=== PATIENT | female | born 1935 | race Caucasian/White ===

== ENCOUNTER 2016-09-08 18:39 | Emergency (ER) | payer OTHER, MEDICARE ==
--- NOTE | 2016-09-08 19:51 | DIAGNOSTIC IMAGING REPORT ---
PROCEDURE: XR WRIST MIN 3 VIEWS - RIGHT INDICATION: TRAUMA/INJURY TECHNIQUE: Four views. COMPARISON: None. FINDINGS: Mild degenerate changes of the right first metacarpal/greater multangular joint. Osseous structures and joint spaces are otherwise normal. If an occult scaphoid fracture is suspected clinically, follow-up examination in 10-14 days may be of assistance. IMPRESSION: 1. Mild degenerative changes. 2. Otherwise negative right wrist.
--- NOTE | 2016-09-08 20:27 | ED NURSING NOTES ---
Clinical Report - Nurses [facility] [address] [place] [address] 09/08/2016 18:38 Patient: MARTHA HA TRIAGE Triage time 18:50 Sep 08 2016. Acuity: LEVEL 4. Chief Complaint: RIGHT UPPER EXTREMITY PAIN and SWELLING. Alert. No acute distress. CAMERON COMA SCORE: Cameron Coma Scale: 15- eyes open spontaneously (4); best verbal response- oriented x 4 (5); best motor response- obeys commands (6). --18:53 Nila Reagan R.N. 18:50 09/08/16. BP: 148/126. HR: 71. RR: 18. O2 saturation: 100%. Temp: 98.2 F. Pain level now 4/10. --18:53 Nila Reagan R.N. Weight: 81.6 kg estimated. Height/Length: 66 inches Estimated. BMI: 29. --18:49 Nila Reagan R.N. Medications Fish Oil Oral (Capsule 1000 mg). PredniSONE Oral 5 mg. Vitamin D Oral (Tablet 2000 unit). Vitamins/Minerals Oral 1 pill. --18:51 Nila Reagan R.N. The following entry was struck by Nila Reagan R.N., 18:52 (09/08/16) Reason - wrong value. <<STRICKEN ENTRY-- Terbinafine HCl Oral (Tablet 250 mg). --18:51 Nila Reagan R.N. --END STRIKE>> The following entry was struck by Nila Reagan R.N., 18:52 (09/08/16) Reason - wrong value. <<STRICKEN ENTRY-- Sulfamethoxazole-TMP DS Oral (Tablet 800-160 mg) 1 tablet, bid, started 05-13-2013. --18:51 Nila Reagan R.N. --END STRIKE>>. Allergies No Known Drug Allergy. --18:51 Nila Reagan R.N. History Arrived by private vehicle. Historian: patient. ( Right Hand Injury after tripping over some boxes in her bedroom. Put her Right Hand out to comfort the fall, swelling and painful.). Injury occurred. This occurred just prior to arrival. Occurred at home. 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 PAST MEDICAL HX: Immunizations: has received pneumonia vaccine; seasonal influenza. SOCIAL HX: Former smoker. No alcohol use or drug use. No infectious disease exposure. FALL RISK ASSESSMENT: Fall risk assessment completed. No fall risk identified. NUTRITIONAL RISK ASSESSMENT: The nutritional risk assessment revealed no deficiencies. FUNCTIONAL ASSESSMENT: Functional assessment: no impairments noted. LEARNING NEEDS ASSESSMENT: The learning needs assessment revealed no barriers. SKIN INTEGRITY ASSESSMENT: Skin integrity risk assessment completed. No skin integrity risk identified. --18:53 Nila Reagan R.N. PROBLEMS: Allergic Reaction. Polymyalgia Rheumatica. Hypercholesterolemia. --18:53 Nila Reagan R.N. ADDITIONAL SURGERIES: . Ear. Tonsillectomy. --18:53 Nila Reagan R.N. Interventions ID band on patient. To room. --18:53 Nila Reagan R.N. PHYSICAL ASSESSMENT Ambulatory to room. GENERAL / NEURO / PSYCH: Alert. Appears in no acute distress. EXTREMITIES: Neuro-vascular status intact to the extremity. Right wrist. SKIN: Skin is warm and dry. --19:13 Nila Reagan R.N. NURSING PROGRESS NOTES Patient ready for evaluation- ED physician notified. --19:13 Nila Reagan R.N. Cold pack applied. --19:14 Nila Reagan R.N. 20:10 Patient contact made; no voiced questions or conerns at this time. --20:11 McQuoid, Lorena, ER Tech1 ( Pt has been discharged by another RN for primary RN. Pt already has a soft brace that she wants to wear, she had it on at triage. Brought from home.). --20:35 Nila Reagan R.N. DISPOSITION / DISCHARGE Departure time: 20:36 Sep 08 2016. Condition at departure: improved and stable. No learning barriers present. Patient verbalized understanding. Written instructions provided in Arabic. The patient was discharged by the physician. She was discharged home. She left the Emergency Department ambulatory and via private vehicle. Patient driving. --20:36 Nila Reagan R.N. 20:35 09/08/16. BP: 144/79. HR: 68. RR: 18. O2 saturation: 97%. Pain level now 0/10. --20:36 Nila Reagan R.N. Locked/Released at 09/08/2016 20:42 by Nila Reagan R.N.
--- NOTE | 2016-09-08 20:27 | ED CLINICAL REPORT ---
Clinical Report - Physicians/Mid Levels [facility] [address] [place] [place] [address] 09/08/2016 18:38 Patient: MARTHA HA Time Seen: 18:50. Arrived- By private vehicle. Historian- patient. HISTORY OF PRESENT ILLNESS Chief Complaint: Injury to the right hand and right wrist. The injury happened just prior to arrival. Fell (on outstretched hand). Occurred at home. Patient is experiencing moderate pain. No other injury. REVIEW OF SYSTEMS The patient has had swelling. No tingling, numbness, weakness, foreign body or skin laceration. All systems otherwise negative, except as recorded above. PAST HISTORY Problems: Allergic Reaction. Polymyalgia Rheumatica. Hypercholesterolemia. Additional Surgeries: . Ear. Tonsillectomy. Medications: Fish Oil Oral (Capsule 1000 mg). PredniSONE Oral 5 mg. Vitamin D Oral (Tablet 2000 unit). Vitamins/Minerals Oral 1 pill. Allergies: No Known Drug Allergy. SOCIAL HISTORY Never smoker. No alcohol use or drug use. ADDITIONAL NOTES The nursing notes have been reviewed. PHYSICAL EXAM Vital Signs: 09/08/2016 18:50 BP: 148/126. HR: 71. RR: 18. O2 saturation: 100%. Temp: 98.2 F. Have been reviewed. Appearance: Alert. No acute distress. Head: Head atraumatic. Eyes: Eyes normal inspection. ENT: Nose normal. Neck: Normal inspection. CVS: Pulses normal. Respiratory: No respiratory distress. Skin: Skin warm and dry. Skin intact. Extremities: Left wrist: moderate tenderness located in the dorsal and radial aspect of the wrist. Neurovascular intact distally. No erythema, swelling, laceration, abrasion or ecchymosis. No puncture wound, foreign body or deformity. No joint effusion or limitation in ROM. Left hand: mild tenderness localized to the proximal, dorsal and radial aspect of the hand. Neurovascular intact distally. (ROM intact). No erythema, swelling, laceration, abrasion or ecchymosis. No puncture wound, foreign body or deformity. Hand and wrist exam otherwise negative. Extremities otherwise negative. Neuro, Vascular and Tendons: Vascular status intact. Sensation intact. Motor intact. Tendon function intact. Neuro: Oriented X 3. No motor deficit. No sensory deficit. LABS, X-RAYS, AND EKG Rt Wrist X-ray: No fracture. Normal alignment. No bony lesion, air in the soft tissue or foreign body. Soft tissues normal. Joint spaces normal. Views: AP, lateral and oblique. Technique: good. The X-rays were independently viewed by me and interpreted contemporaneously by me. Prior films were not available for comparison. Pulse Oximetry: 09/08/2016 18:50 O2 saturation: 100%. (FIO2 - room air). Interpretation: normal. PROGRESS AND PROCEDURES Course of Care: X-ray was performed to evaluate the pt's wrist tenderness, and was negative, other than degenerative changes. Patient counseled in person regarding the patient's stable condition, test results, diagnosis and need for follow-up. Concerns were addressed. Old medical records reviewed. Disposition: Discharged. Condition: stable. CLINICAL IMPRESSION Sprain of the right radiocarpal joint. INSTRUCTIONS Apply ice. (Your x-ray series looks good--no broken bones!). Warnings: GENERAL WARNINGS: Return or contact your physician immediately if your condition worsens or changes unexpectedly, if not improving as expected, or if other problems arise. Your Current Medications: CONTINUE TAKING THE FOLLOWING MEDICATIONS: Fish Oil Oral : Capsule 1000 mg. PredniSONE Oral : 5 mg. Vitamin D Oral : Tablet 2000 unit. Vitamins/Minerals Oral : 1 pill. Follow-up: Follow up with your doctor as needed. Understanding of the discharge instructions verbalized by patient. (Electronically signed by Andra Deshpande MD 09/17/2016 7:06)
--- NOTE | 2016-09-08 20:27 | ED ORDER SUMMARY ---
..... Patient: MARTHA HA OrderSheet [facility] VisitID: [id number] [address] [place] [address] 80y, F Registration Date/Time: 09/08/2016 ORDER SHEET Weight: 81.6 kg (estimated) Allergies: No Known Drug Allergy GENERAL ORDERS: Wrist 3 or 4V Right Urgent (19:16 09/08/2016 Deo Miranda per protocol) (Ack 19:17 ZENAIDAoerbrayden) (19:29 ) MEDICATION ORDERS: IV FLUIDS: ORDER SHEET NOTES: [Electronically signed by Nila Reagan R.N. (20:42 09/08/2016)] [Electronically signed by Andra Deshpande MD (07:06 09/17/2016)] [Electronically locked/signed by Nila Reagan R.N. (20:42 09/08/2016)]
--- NOTE | 2016-09-08 20:27 | ED ORDER SUMMARY ---
..... Patient: MARTHA HA OrderSheet [facility] VisitID: [id number] [address] [place] [address] 80y, F Registration Date/Time: 09/08/2016 ORDER SHEET Weight: 81.6 kg (estimated) Allergies: No Known Drug Allergy GENERAL ORDERS: Wrist 3 or 4V Right Urgent (19:16 09/08/2016 Deo Miranda per protocol) (Ack 19:17 ZENAIDAoerbrayden) (19:29 ) MEDICATION ORDERS: IV FLUIDS: ORDER SHEET NOTES: [Electronically signed by Nila Reagan R.N. (20:42 09/08/2016)] [Electronically signed by Andra Deshpande MD (07:06 09/17/2016)] [Electronically locked/signed by Nila Reagan R.N. (20:42 09/08/2016)]
--- NOTE | 2016-09-08 20:27 | ED NURSING NOTES ---
Clinical Report - Nurses [facility] [address] [place] [address] 09/08/2016 18:38 Patient: MARTHA HA TRIAGE Triage time 18:50 Sep 08 2016. Acuity: LEVEL 4. Chief Complaint: RIGHT UPPER EXTREMITY PAIN and SWELLING. Alert. No acute distress. CAMERON COMA SCORE: Cameron Coma Scale: 15- eyes open spontaneously (4); best verbal response- oriented x 4 (5); best motor response- obeys commands (6). --18:53 Nila Reagan R.N. 18:50 09/08/16. BP: 148/126. HR: 71. RR: 18. O2 saturation: 100%. Temp: 98.2 F. Pain level now 4/10. --18:53 Nila Reagan R.N. Weight: 81.6 kg estimated. Height/Length: 66 inches Estimated. BMI: 29. --18:49 Nila Reagan R.N. Medications Fish Oil Oral (Capsule 1000 mg). PredniSONE Oral 5 mg. Vitamin D Oral (Tablet 2000 unit). Vitamins/Minerals Oral 1 pill. --18:51 Nila Reagan R.N. The following entry was struck by Nila Reagan R.N., 18:52 (09/08/16) Reason - wrong value. <<STRICKEN ENTRY-- Terbinafine HCl Oral (Tablet 250 mg). --18:51 Nila Reagan R.N. --END STRIKE>> The following entry was struck by Nila Reagan R.N., 18:52 (09/08/16) Reason - wrong value. <<STRICKEN ENTRY-- Sulfamethoxazole-TMP DS Oral (Tablet 800-160 mg) 1 tablet, bid, started 05-13-2013. --18:51 Nila Reagan R.N. --END STRIKE>>. Allergies No Known Drug Allergy. --18:51 Nila Reagan R.N. History Arrived by private vehicle. Historian: patient. ( Right Hand Injury after tripping over some boxes in her bedroom. Put her Right Hand out to comfort the fall, swelling and painful.). Injury occurred. This occurred just prior to arrival. Occurred at home. 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 PAST MEDICAL HX: Immunizations: has received pneumonia vaccine; seasonal influenza. SOCIAL HX: Former smoker. No alcohol use or drug use. No infectious disease exposure. FALL RISK ASSESSMENT: Fall risk assessment completed. No fall risk identified. NUTRITIONAL RISK ASSESSMENT: The nutritional risk assessment revealed no deficiencies. FUNCTIONAL ASSESSMENT: Functional assessment: no impairments noted. LEARNING NEEDS ASSESSMENT: The learning needs assessment revealed no barriers. SKIN INTEGRITY ASSESSMENT: Skin integrity risk assessment completed. No skin integrity risk identified. --18:53 Nila Reagan R.N. PROBLEMS: Allergic Reaction. Polymyalgia Rheumatica. Hypercholesterolemia. --18:53 Nila Reagan R.N. ADDITIONAL SURGERIES: . Ear. Tonsillectomy. --18:53 Nila Reagan R.N. Interventions ID band on patient. To room. --18:53 Nila Reagan R.N. PHYSICAL ASSESSMENT Ambulatory to room. GENERAL / NEURO / PSYCH: Alert. Appears in no acute distress. EXTREMITIES: Neuro-vascular status intact to the extremity. Right wrist. SKIN: Skin is warm and dry. --19:13 Nila Reagan R.N. NURSING PROGRESS NOTES Patient ready for evaluation- ED physician notified. --19:13 Nila Reagan R.N. Cold pack applied. --19:14 Nila Reagan R.N. 20:10 Patient contact made; no voiced questions or conerns at this time. --20:11 McQuoid, Lorena, ER Tech1 ( Pt has been discharged by another RN for primary RN. Pt already has a soft brace that she wants to wear, she had it on at triage. Brought from home.). --20:35 Nila Reagan R.N. DISPOSITION / DISCHARGE Departure time: 20:36 Sep 08 2016. Condition at departure: improved and stable. No learning barriers present. Patient verbalized understanding. Written instructions provided in Nepali. The patient was discharged by the physician. She was discharged home. She left the Emergency Department ambulatory and via private vehicle. Patient driving. --20:36 Nila Reagan R.N. 20:35 09/08/16. BP: 144/79. HR: 68. RR: 18. O2 saturation: 97%. Pain level now 0/10. --20:36 Nila Reagan R.N. Locked/Released at 09/08/2016 20:42 by Nila Reagan R.N.
--- NOTE | 2016-09-08 20:27 | ED CLINICAL REPORT ---
Clinical Report - Physicians/Mid Levels [facility] [address] [place] [address] 09/08/2016 18:38 Patient: MARTHA HA Time Seen: 18:50. Arrived- By private vehicle. Historian- patient. HISTORY OF PRESENT ILLNESS Chief Complaint: Injury to the right hand and right wrist. The injury happened just prior to arrival. Fell (on outstretched hand). Occurred at home. Patient is experiencing moderate pain. No other injury. REVIEW OF SYSTEMS The patient has had swelling. No tingling, numbness, weakness, foreign body or skin laceration. All systems otherwise negative, except as recorded above. PAST HISTORY Problems: Allergic Reaction. Polymyalgia Rheumatica. Hypercholesterolemia. Additional Surgeries: . Ear. Tonsillectomy. Medications: Fish Oil Oral (Capsule 1000 mg). PredniSONE Oral 5 mg. Vitamin D Oral (Tablet 2000 unit). Vitamins/Minerals Oral 1 pill. Allergies: No Known Drug Allergy. SOCIAL HISTORY Never smoker. No alcohol use or drug use. ADDITIONAL NOTES The nursing notes have been reviewed. PHYSICAL EXAM Vital Signs: 09/08/2016 18:50 BP: 148/126. HR: 71. RR: 18. O2 saturation: 100%. Temp: 98.2 F. Have been reviewed. Appearance: Alert. No acute distress. Head: Head atraumatic. Eyes: Eyes normal inspection. ENT: Nose normal. Neck: Normal inspection. CVS: Pulses normal. Respiratory: No respiratory distress. Skin: Skin warm and dry. Skin intact. Extremities: Left wrist: moderate tenderness located in the dorsal and radial aspect of the wrist. Neurovascular intact distally. No erythema, swelling, laceration, abrasion or ecchymosis. No puncture wound, foreign body or deformity. No joint effusion or limitation in ROM. Left hand: mild tenderness localized to the proximal, dorsal and radial aspect of the hand. Neurovascular intact distally. (ROM intact). No erythema, swelling, laceration, abrasion or ecchymosis. No puncture wound, foreign body or deformity. Hand and wrist exam otherwise negative. Extremities otherwise negative. Neuro, Vascular and Tendons: Vascular status intact. Sensation intact. Motor intact. Tendon function intact. Neuro: Oriented X 3. No motor deficit. No sensory deficit. LABS, X-RAYS, AND EKG Rt Wrist X-ray: No fracture. Normal alignment. No bony lesion, air in the soft tissue or foreign body. Soft tissues normal. Joint spaces normal. Views: AP, lateral and oblique. Technique: good. The X-rays were independently viewed by me and interpreted contemporaneously by me. Prior films were not available for comparison. Pulse Oximetry: 09/08/2016 18:50 O2 saturation: 100%. (FIO2 - room air). Interpretation: normal. PROGRESS AND PROCEDURES Course of Care: X-ray was performed to evaluate the pt's wrist tenderness, and was negative, other than degenerative changes. Patient counseled in person regarding the patient's stable condition, test results, diagnosis and need for follow-up. Concerns were addressed. Old medical records reviewed. Disposition: Discharged. Condition: stable. CLINICAL IMPRESSION Sprain of the right radiocarpal joint. INSTRUCTIONS Apply ice. (Your x-ray series looks good--no broken bones!). Warnings: GENERAL WARNINGS: Return or contact your physician immediately if your condition worsens or changes unexpectedly, if not improving as expected, or if other problems arise. Your Current Medications: CONTINUE TAKING THE FOLLOWING MEDICATIONS: Fish Oil Oral : Capsule 1000 mg. PredniSONE Oral : 5 mg. Vitamin D Oral : Tablet 2000 unit. Vitamins/Minerals Oral : 1 pill. Follow-up: Follow up with your doctor as needed. Understanding of the discharge instructions verbalized by patient. (Electronically signed by Andra Deshpande MD 09/17/2016 7:06)
--- NOTE | 2016-09-17 07:06 | ED MED RECONCILIATION SUMMARY ---
Patient: MARTHA HA Medication Reconciliation Report [facility] VisitID: [id number] [address] [place] [address] 80y, F Registration Date/Time: 09/08/2016 Weight: 81.6 kg Height/Length: 66 in. BMI: 29.0 ALLERGIES: No Known Drug Allergy The patient's Home Medications are listed below: CONTINUE TAKING THE FOLLOWING MEDICATIONS: Fish Oil Oral (1000 mg) PredniSONE Oral 5 mg Vitamin D Oral (2000 unit) Vitamins/Minerals Oral 1 pill The source(s) of the original Home Medication information: Not obtained. The following Medications were given to the patient in the Emergency Department: None. The following Medications were prescribed to the patient: None.
--- NOTE | 2016-09-17 07:06 | ED MED RECONCILIATION SUMMARY ---
Patient: MARTHA HA Medication Reconciliation Report [facility] VisitID: [id number] [address] [place] [address] 80y, F Registration Date/Time: 09/08/2016 Weight: 81.6 kg Height/Length: 66 in. BMI: 29.0 ALLERGIES: No Known Drug Allergy The patient's Home Medications are listed below: CONTINUE TAKING THE FOLLOWING MEDICATIONS: Fish Oil Oral (1000 mg) PredniSONE Oral 5 mg Vitamin D Oral (2000 unit) Vitamins/Minerals Oral 1 pill The source(s) of the original Home Medication information: Not obtained. The following Medications were given to the patient in the Emergency Department: None. The following Medications were prescribed to the patient: None.
--- NOTE | 2016-09-17 07:06 | ED MAR SUMMARY ---
..... Medication Administration Record [facility] [address] [place] [address] Patient: MARTHA HA Visit ID: [id number] 80y, F Weight: 81.6 kg Height/Length: 66 in BMI: 29 ALLERGIES: No Known Drug Allergy
--- NOTE | 2016-09-17 07:06 | ED DISCHARGE INSTRUCTIONS ---
Patient: MARTHA HA General Instructions [facility] VisitID: [id number] [place] [address] 80y, F Registration Date/Time: 09/08/2016 Sprain of the right radiocarpal joint. INSTRUCTIONS Apply ice. (Your x-ray series looks good--no broken bones!). Warnings: GENERAL WARNINGS: Return or contact your physician immediately if your condition worsens or changes unexpectedly, if not improving as expected, or if other problems arise. Your Current Medications: CONTINUE TAKING THE FOLLOWING MEDICATIONS: Fish Oil Oral : Capsule 1000 mg. PredniSONE Oral : 5 mg. Vitamin D Oral : Tablet 2000 unit. Vitamins/Minerals Oral : 1 pill. Follow-up: Follow up with your doctor as needed. Understanding of the discharge instructions verbalized by patient. ADDITIONAL INFORMATION Sprain, Wrist A sprain is an injury to the ligaments or capsule that holds a joint together. There are no broken bones. Most sprains take about three to six weeks to heal. If the ligament is completely torn (severe sprain), it can take months to recover. Most wrist sprains are treated with a splint, wrist brace or elastic wrap for support. Severe sprains may require surgery. Home care The following guidelines will help you care for your injury at home: 1) Keep your arm elevated to reduce pain and swelling. This is very important during the first 48 hours. 2) Apply an ice pack (ice cubes in a plastic bag, wrapped in a towel) over the injured area for 20 minutes every 12 hours the first day. Continue with ice packs 34 times a day for the next two days, then as needed for the relief of pain and swelling. 3) You may use acetaminophen or ibuprofen to control pain, unless another pain medicine was prescribed.If you have chronic liver or kidney disease or ever had a stomach ulcer or GI bleeding, talk with your doctor before using these medicines. 4) If you were given a splint or brace, wear it for the time advised by your doctor. Follow-up care Follow up with your doctor as advised. Any X-rays you had today dont show any broken bones, breaks, or fractures. Sometimes fractures dont show up on the first X-ray. Bruises and sprains can sometimes hurt as much as a fracture. These injuries can take time to heal completely. If your symptoms dont improve or they get worse, talk with your doctor. You may need a repeat X-ray. When to seek medical care Get prompt medical attention if any of the following occur: Pain or swelling increases Fingers or hand becomes cold, blue, numb, or tingly You have been given the following additional information: Wrist Sprain (Electronically signed by Andra Deshpande MD 09/17/2016 7:06)
--- NOTE | 2016-09-17 07:06 | ED MAR SUMMARY ---
..... Medication Administration Record [facility] [address] [place] [address] Patient: MARTHA HA Visit ID: [id number] 80y, F Weight: 81.6 kg Height/Length: 66 in BMI: 29 ALLERGIES: No Known Drug Allergy
== END 2016-09-08 20:30 | disposition home or self-care (01) ==
LOC: ED SRH 18:39
DX: S63.521A Sprain of radiocarpal joint of right wrist, initial encounter (principal); W01.0XXA Fall on same level from slipping, tripping and stumbling without subsequent striking against object, initial encounter; Y93.89 Activity, other specified; Y92.003 Bedroom of unspecified non-institutional (private) residence as the place of occurrence of the external cause; Y99.9 Unspecified external cause status; E78.00 Pure hypercholesterolemia, unspecified; Z79.899 Other long term (current) drug therapy; Z87.891 Personal history of nicotine dependence